=== PATIENT | male | born 1935 | race Caucasian/White ===

== ENCOUNTER 2016-12-03 13:59 | Outpatient (CLI) | payer MEDICARE | END 2016-12-03 14:00 | LOC: POD 13:59 | PROVIDERS: ATTEND Podiatrist | DX: B35.1 Tinea unguium (principal); M79.674 Pain in right toe(s); M79.675 Pain in left toe(s) | CPT/HCPCS: 11721; G0463 ==

== ENCOUNTER 2017-02-18 13:44 | Outpatient (CLI) | payer MEDICARE | END 2017-02-18 13:45 | LOC: POD 13:44 | PROVIDERS: ATTEND Podiatrist | DX: B35.1 Tinea unguium (principal); M79.674 Pain in right toe(s); M79.675 Pain in left toe(s) | CPT/HCPCS: 11721; G0463 ==

== ENCOUNTER 2017-05-20 13:55 | Outpatient (CLI) | payer MEDICARE | END 2017-05-20 13:56 | LOC: POD 13:55 | PROVIDERS: ATTEND Podiatrist | DX: B35.1 Tinea unguium (principal); M79.674 Pain in right toe(s); M79.675 Pain in left toe(s) | CPT/HCPCS: 11721; G0463 ==

== ENCOUNTER 2017-06-29 13:16 | Outpatient (CLI) | payer MEDICARE | END 2017-06-29 13:17 | LOC: LAB 13:16 | PROVIDERS: ATTEND Family Medicine | DX: R73.9 Hyperglycemia, unspecified (principal) | CPT/HCPCS: 36415; 83036 ==

== ENCOUNTER 2017-08-19 14:36 | Outpatient (CLI) | payer MEDICARE | END 2017-08-19 14:46 | LOC: POD 14:36 | PROVIDERS: ATTEND Podiatrist | DX: B35.1 Tinea unguium (principal); M79.674 Pain in right toe(s); M79.675 Pain in left toe(s) | CPT/HCPCS: 11721; G0463 ==

== ENCOUNTER 2017-11-18 14:02 | Outpatient (CLI) | payer MEDICARE | END 2017-11-18 14:03 | LOC: POD 14:02 | PROVIDERS: ATTEND Podiatrist | DX: B35.1 Tinea unguium (principal); M79.674 Pain in right toe(s); M79.675 Pain in left toe(s) | CPT/HCPCS: 11721; G0463 ==

== ENCOUNTER 2018-02-17 14:25 | Outpatient (CLI) | payer MEDICARE | END 2018-02-17 14:26 | LOC: POD 14:25 | PROVIDERS: ATTEND Podiatrist | DX: B35.1 Tinea unguium (principal); M79.674 Pain in right toe(s); M79.675 Pain in left toe(s) | CPT/HCPCS: 11721; G0463 ==

== ENCOUNTER 2018-05-19 14:28 | Outpatient (CLI) | payer MEDICARE | END 2018-05-19 14:30 | LOC: POD 14:28 | PROVIDERS: ATTEND Podiatrist | DX: B35.1 Tinea unguium (principal); M79.674 Pain in right toe(s); M79.675 Pain in left toe(s) | CPT/HCPCS: 11721; G0463 ==

== ENCOUNTER 2018-07-17 16:23 | Outpatient (CLI) | payer MEDICARE ==
[2018-07-17 17:29] LABS: eGFR (Non-African) 56
[2018-07-17 22:41] LABS: IRON SERUM 96 ug/dL (59-158); SERUM IRON 96 ug/dL (59-158)
[2018-07-17 22:51] LABS: BASO % 0.3 % (0.0-1.5); EOS % 2.1 % (0.0-6.8); LYMPH ABS # 1.81 thou/uL (0.60-4.00); MCH. 32.6 pg (28.0-34.0); MCV 97.5 fL (80.0-100.0); MONOCYTE % 9.1 % (0.0-11.0); MONOCYTE ABS # 0.74 thou/uL (0.00-0.90); PLATELET COUNT 188 thou/uL (130-400)
== END 2018-07-17 16:24 ==
LOC: LAB 16:23
PROVIDERS: ATTEND Family Medicine
DX: D64.9 Anemia, unspecified (principal); E11.9 Type 2 diabetes mellitus without complications
CPT/HCPCS: 36415; 80053; 80061; 83036; 83540; 83550; 85025

== ENCOUNTER 2018-09-25 10:35 | Day surgery (SDC) | payer MEDICARE ==
[~2018-09-25 10:35] MED LIST: LACTATED RINGERS 1,000 ML IV.SOLN IV ONE; PROPOFOL 200 MG/20 ML VIAL IV ONE
--- NOTE | 2018-10-03 13:21 | GI Report ---
REFERRING PHYSICIAN: Dr. Anastasiya White [employer]AC[employer] METALIZING SUPERVISOR: Dontae Ross MD PROCEDURE MEDICATION: Propofol as per anesthesia. INDICATIONS: Patient has had previous polyps. He is a 50 plus tobacco user and still smokes. Apparently, his recently. There is a family history of colon cancer also. PROCEDURE PERFORMED: Surveillance colonoscopy and polypectomy. PROCEDURE: An Olympus video colonoscope was advanced to the rectum and slowly advanced to the cecum. It did require nurse compression to get to the cecum. The appendiceal orifice and ileocecal valve were normal. On slow withdrawal, the cecum and ascending colon were normal. In the transverse colon, the patient had 2 polyps removed varying from 3 to 4 mm in size. In the sigmoid colon, there was another 3 mm polyp removed with a cold snare. Retroflexion of the rectum was normal. Patient tolerated the procedure well. FINDINGS: 1. Three polyps removed, 2 in the transverse colon and 1 in the sigmoid colon. 2. An atonic redundant colon. 3. Chronic obstructive pulmonary disease (COPD). RECOMMENDATIONS: 1. Increase fiber in his diet. 2. Recommend he discontinue tobacco usage. 3. Consider re-looking at his colon in 5 years pending the pathology report. cc: Dr. Anastasiya FONG
== END 2018-09-25 10:36 ==
LOC: OPSURG 10:35
PROVIDERS: ATTEND Internal Medicine Gastroenterology
DX: K63.5 Polyp of colon (principal); J44.9 Chronic obstructive pulmonary disease, unspecified; F17.210 Nicotine dependence, cigarettes, uncomplicated; Z80.0 Family history of malignant neoplasm of digestive organs; Z12.11 Encounter for screening for malignant neoplasm of colon
CPT/HCPCS: G0105; J2704; J7120; S1016

== ENCOUNTER 2019-09-12 15:55 | Emergency (ER) | payer MEDICARE ==
--- NOTE | 2019-09-12 16:18 | ED Physician Documentation ---
Lower Extremity Problem - HISTORIAN Historian: patient - HPI Stated Complaint: right lower leg swelling Chief Complaint: Lower Extremity Problem Additional Information: Patient presents to ED with a 2 day history of right leg swelling and pain. Patient states the pain woke him up 2 nights ago and has been persistent since. He states the swelling has been worse today. He denies any injury. He is a smoker. Location of Injury: R leg Onset: days ago (2) Timing: still present, worse Duration: constant Recent Injury: No Where: home Severity: moderate Quality: pain, swelling, tenderness Exacerbated By: walking Relieved By: nothing Associated Symptoms: denies: chest pain, shortness of breath, rapid heart rate, fainting - ROS CONST: denies: fever MS/SKIN/LYMPH: calf pain CVS/RESP: denies: chest pain, shortness of breath, cough GI/: denies: abdominal pain, vomiting, nausea EYES/ENT: none NERUO/PSYCH: denies: headache - PAST HX Past History: none PE Risk Factors: hypertension, leg swelling Other History: hypertension, other (BPH) Allergies/Adverse Reactions: Allergies Allergy/AdvReac Type Severity Reaction Status Date / Time tetanus immune globulin Allergy Unknown Verified 09/12/19 16:24 Grain dust Allergy Unknown Uncoded 09/12/19 16:24 pet dandruff Allergy Unknown Uncoded 09/12/19 16:24 Home Medications: Ambulatory Orders Medication Instructions Recorded Aspirin [Steve] 81 mg PO DAILY 09/12/19 Nifedipine [Nifedipine ER] 60 mg PO BID 09/12/19 Simvastatin 25 mg PO QDAY 09/12/19 - SOCIAL HX Smoking History: cigarettes, greater than 1 pack/day Alcohol Use: none Drug Use: none - FAMILY HX Family History: none - VITAL SIGNS Vital Signs: Vital Signs Temp Pulse Resp BP Pulse Ox 98.5 F 91 H 16 96 09/12/19 16:08 09/12/19 16:08 09/12/19 16:08 09/12/19 16:08 - REVIEWED ASSESSMENTS Nursing Assessment Reviewed: Yes Vitals Reviewed: Yes ED Results Lab/Radiology - Radiology Radiology Impressions: Report Submission Date: Sep 12, 2019 4:53:45 PM SYSTEM CONFIGURATION SPECIALIST Patient Study Name: PEYTON JIMENEZ Date: Sep 12, 2019 4:15:43 PM SYSTEM CONFIGURATION SPECIALIST Modality Type: US Gender: M Description: US U OR L EXT VEINS UNILAT : 37 Institution: [facility] Physician: CAROLYN GARCIA Examination: Ultrasound right vein History: RT LEG PAIN AND SWELLING, Findings: Sonographic evaluation of the right lower extremity venous system from the groin to the popliteal fossa inclusive. Normal compressibility. No luminal filling defect. Normal waveforms and response to augmentation. No popliteal region fluid collection. Impression: No evidence for deep venous thrombosis. Electronically signed on Sep 12, 2019 4:53:45 PM SYSTEM CONFIGURATION SPECIALIST by: Tirso Lozano - Orders Orders: ED Orders Category Date Time Status VENOUS DUPLEX OF RT LE [US U OR L EXT VEINS UNILAT] [US Exams 09/12/19 Com pleted ] Stat Lower Extremity Problem - EXAM General Appearance: no distress Hips: bilateral hip: non-tender, normal inspection, normal range of motion, no evidence of injury Legs: bilateral: non-tender, normal inspection, normal range of motion, no evidence of injury Knees: bilateral: non-tender, normal inspection, normal range of motion, no evidence of injury Ankle: right: swelling (+1 edema), left: non-tender, normal inspection, normal range of motion, no evidence of injury Foot: right foot: swelling (+1 edema), other (lateral dorsal redness/warmth) EENT: STACY RESPIRATORY: no resp distress, chest non-tender, breath sounds normal CVS: reg rate & rhythm, heart sounds normal VASCULAR: no vascular compromise, pulses full/equal. No: Tam's sign NEURO/PSYCH: oriented X3, motor nml, sensation nml, mood/affect nml SKIN: warm/dry BACK: normal inspection Discharge Clincal Impression: Cellulitis of right foot Referrals: Anastasiya White MD [Primary Care Provider] - 2 Days Additional Instructions: 1. Take antibiotic until gone 2. Medrol dose pack as directed 3. Follow up with PCP within 1 week 4. Return to ER for new or worsening symptoms Condition: Stable Disposition: 01 HOME, SELF-CARE Decision to Admit: NO Date of Decison to Admit: 09/12/19 Decision Time: 17:09
--- NOTE | 2019-09-12 16:58 | Diagnostic Imaging Report ---
PATIENT MR#: [id number] PATIENT PATIENT NAME: PEYTON JIMENEZ DATE OF : 1935 REFERRING PHYSICIAN: Antonella Carmen EXAM DATE: 09/12/2019 ACCESSION NUMBER: [id number] EXAM DESCRIPTION: US U OR L EXT VEINS UNILAT Examination: Ultrasound right vein History: RT LEG PAIN AND SWELLING, Findings: Sonographic evaluation of the right lower extremity venous system from the groin to the pop liteal fossa inclusive. Normal compressibility. No luminal filling defect. Normal waveforms and response to augmen tation. No popliteal region fluid collection. Impression: No evidence for deep venous thrombosis. Read by: Dr. Tirso Lozano Transcribed by: Transcribed Date: Electronically signed by: Dr. Tirso Lozano Date signed: 09/12/2019 4:57:56 PM
[2019-09-12] MEDS ORDERED: AMOXICILLIN/POT 875/125 1 EACH PO ONE (17:10)
[2019-09-12] MEDS ORDERED: predniSONE 20 MG TABLET PO ONE (17:10)
== END 2019-09-12 17:24 | disposition home or self-care (01) ==
LOC: ED 15:55
DX: L03.115 Cellulitis of right lower limb (principal)
CPT/HCPCS: 93971; 99282; 99283